=== PATIENT | female | born 1965 | race Caucasian/White ===

== ENCOUNTER 2017-12-05 13:45 | Emergency (ER) | payer MEDICARE, MEDICAID ==
[~2017-12-05] VITALS: Ht 165.1 cm; Wt 98.9 kg
[2017-12-05] MEDS ORDERED: QUET200T PO (13:55)
[2017-12-05] MEDS ORDERED: ABIL5 PO (13:55)
[2017-12-05] MEDS ORDERED: LORAZEPAM 1MG TABLET PO ONE (16:30)
[2017-12-05 17:10] LABS: CLARITY URINE CLEAR (CLEAR); COLOR URINE YELLOW (YELLOW); KETONES URINE TRACE (NEGATIVE); LEUKOCYTE ESTERASE URINE NEGATIVE (NEGATIVE); NITRITE URINE NEGATIVE (NEGATIVE); OCCULT BLOOD URINE NEGATIVE (NEGATIVE); PH URINE 5.5 (4.5-8.0); PROTEIN URINE NEGATIVE (NEGATIVE); UROBILINOGEN URINE 0.2 E.U./dL (0.2-1.0)
[2017-12-05 17:23] LABS: *AMPHETAMINES SCREEN URINE NEGATIVE (NEGATIVE)
[2017-12-05 17:24] LABS: *BARBITURATES SCREEN URINE NEGATIVE (NEGATIVE)
[2017-12-05 17:25] LABS: *BENZODIAZEPINES SCREEN URINE NEGATIVE (NEGATIVE); *COCAINE SCREEN URINE NEGATIVE (NEGATIVE); CANNABINOID URINE SCREEN NEGATIVE (NEGATIVE); METHADONE URINE SCREEN NEGATIVE (NEGATIVE); OPIATES URINE SCREEN NEGATIVE (NEGATIVE); PHENCYCLIDINE URINE SCREEN NEGATIVE (NEGATIVE)
[2017-12-05 17:26] LABS: BASOPHILS % 0.6 % (0.0-2.0); EOSINOPHILS % 1.4 % (0.0-5.0); HEMATOCRIT. 42.8 % (36.0-48.0); HEMOGLOBIN. 14.6 g/dL (12.0-16.0); LYMPHOCYTES % 24.9 % (20.0-50.0); MEAN CORPUSCULAR HEMOGLOBIN 30.2 pg (28.0-32.0); MEAN CORPUSCULAR VOLUME 88.7 fL (81.0-99.0); MONOCYTES % 5.8 % (2.0-8.0); NEUTROPHILS % 67.3 % (40.0-76.0); PLATELET 227 x1000/uL (130-400); RED BLOOD CELL COUNT 4.82 mill/uL (4.2-5.4); RED CELL DISTRIBUTION WIDTH 14.6 % (11.6-14.6)
[2017-12-05 17:28] LABS: CHLORIDE 107 mEq/L (98-107)
[2017-12-05 17:33] LABS: ETHANOL BLOOD < 10 mg/dL
[2017-12-05 17:37] LABS: HCG SCREEN NEGATIVE
[2017-12-06] MEDS ORDERED: LORAZEPAM 1MG TABLET PO ONE (07:15)
[2017-12-06 10:21] VITALS: BP 105/68
== END 2017-12-06 10:33 | disposition home or self-care (01) ==
LOC: ER 14:04
DX: R45.851 Suicidal ideations (principal); R44.0 Auditory hallucinations; F20.9 Schizophrenia, unspecified; J44.9 Chronic obstructive pulmonary disease, unspecified; I10 Essential (primary) hypertension; F17.200 Nicotine dependence, unspecified, uncomplicated; Z90.710 Acquired absence of both cervix and uterus
CPT/HCPCS: 36415; 80053; 80305; 80307; 80329; 81003; 84703; 85025; 99284; G0482

== ENCOUNTER 2019-10-11 06:46 | Emergency (ER) | payer BC, MEDICAID ==
[~2019-10-11] VITALS: Ht 165.1 cm; Wt 68.0 kg
[~2019-10-11 06:46] MED LIST: ABIL5 PO; QUET200T PO
[2019-10-11 07:18] VITALS: BP 135/94
== END 2019-10-11 08:09 | disposition left against medical advice (07) ==
LOC: ER 06:46
DX: Z53.21 Procedure and treatment not carried out due to patient leaving prior to being seen by health care provider (principal)

== ENCOUNTER 2019-10-14 05:15 | Emergency (ER) | payer BC, MEDICAID ==
[~2019-10-14] VITALS: Ht 162.6 cm; Wt 70.0 kg
[2019-10-14 05:22] VITALS: BP 137/89
== END 2019-10-14 06:53 | disposition home or self-care (01) ==
LOC: ER 05:15
DX: F20.9 Schizophrenia, unspecified (principal); F31.9 Bipolar disorder, unspecified; J44.9 Chronic obstructive pulmonary disease, unspecified; Z90.710 Acquired absence of both cervix and uterus; Z98.890 Other specified postprocedural states
CPT/HCPCS: 99282; 99283

== ENCOUNTER 2019-10-24 05:55 | Emergency (ER) | payer BC, MEDICAID ==
[~2019-10-24] VITALS: Ht 162.6 cm; Wt 80.0 kg
[2019-10-24 06:57] LABS: BASOPHILS % 0.7 % (0.0-2.0); EOSINOPHILS % 0.9 % (0.0-5.0); HEMATOCRIT. 46.1 % (36.0-48.0); HEMOGLOBIN. 16.1 g/dL (12.0-16.0); LYMPHOCYTES % 28.2 % (20.0-50.0); MEAN CORPUSCULAR HEMOGLOBIN 31.5 pg (28.0-32.0); MEAN CORPUSCULAR VOLUME 90.2 fL (81.0-99.0); MONOCYTES % 6.7 % (2.0-8.0); NEUTROPHILS % 63.5 % (40.0-76.0); RED BLOOD CELL COUNT 5.11 mill/uL (4.2-5.4); RED CELL DISTRIBUTION WIDTH 13.3 % (11.6-14.6)
[2019-10-24 07:00] LABS: CHLORIDE 108 mEq/L (98-107)
[2019-10-24 07:03] LABS: ETHANOL BLOOD 15 mg/dL
[2019-10-24 07:21] LABS: PLATELET 223 x1000/uL (130-400)
[2019-10-24] MEDS ORDERED: LORAZEPAM 2MG/ML CPJ IM STA (08:13)
[2019-10-24] MEDS ORDERED: OLANZAPINE 10 MG/VIAL IM ONE (08:15)
[2019-10-24 12:29] LABS: CLARITY URINE CLEAR (CLEAR); COLOR URINE YELLOW (YELLOW); KETONES URINE NEGATIVE (NEGATIVE); LEUKOCYTE ESTERASE URINE NEGATIVE (NEGATIVE); NITRITE URINE NEGATIVE (NEGATIVE); OCCULT BLOOD URINE NEGATIVE (NEGATIVE); PROTEIN URINE NEGATIVE (NEGATIVE); SPECIFIC GRAVITY URINE 1.011 (1.005-1.030)
[2019-10-24 12:44] LABS: *AMPHETAMINES SCREEN URINE NEGATIVE (NEGATIVE); *BARBITURATES SCREEN URINE NEGATIVE (NEGATIVE); *BENZODIAZEPINES SCREEN URINE NEGATIVE (NEGATIVE); *COCAINE SCREEN URINE NEGATIVE (NEGATIVE)
[2019-10-24 12:45] LABS: CANNABINOID URINE SCREEN NEGATIVE (NEGATIVE); METHADONE URINE SCREEN NEGATIVE (NEGATIVE); OPIATES URINE SCREEN NEGATIVE (NEGATIVE); PHENCYCLIDINE URINE SCREEN NEGATIVE (NEGATIVE)
[2019-10-24 20:40] VITALS: BP 115/69
== END 2019-10-24 21:16 ==
LOC: ER 05:55
DX: R45.851 Suicidal ideations (principal); F31.9 Bipolar disorder, unspecified; R03.0 Elevated blood-pressure reading, without diagnosis of hypertension
CPT/HCPCS: 36415; 80053; 80305; 80320; 81003; 85025; 96372; 99285; J2060; J3490; G0480